=== PATIENT | female | born 1970 | race Caucasian/White ===

== ENCOUNTER → 2018-03-25 | Outpatient (CLI) | payer BC ==
[2018-03-25 14:22] LABS: BASO % 0.5 % (0.0-1.0); HEMOGLOBIN 13.6 g/dl (12.0-16.0); LYMPH # 1.8 10*3/uL (1.3-4.4); LYMPH % 22.7 % (27.0-41.0); MEAN CELL VOLUME 90.1 fl (81.0-99.0); MEAN CORPUSCULAR HGB 30.6 pg (27.0-31.0); MEAN PLATELET VOLUME 11.5 fl (9.6-12.3); MONO # 0.4 10*3/uL (0.1-1.0); MONO % 4.8 % (3.0-9.0); NEUT # 5.6 10*3/uL (2.3-7.9); NEUT % 71.6 % (47.0-73.0); PLATELET COUNT AUTOMATED 143 10*3/uL (130-400); RED BLOOD COUNT 4.44 10*6/uL (4.10-5.10); RED CELL DISTRI WIDTH 14.5 % (0-14.5); WHITE BLOOD COUNT 7.9 10*3/uL (4.8-10.8)
[2018-03-25 14:38] LABS: ALBUMIN 3.7 gm/dl (3.1-4.5); BUN 8 mg/dl (7-24); CHLORIDE 103 mmol/L (98-107); POTASSIUM 4.5 mmol/L (3.5-5.1); SGOT/AST 8 IU/L (3-35); SGPT/ALT 18 U/L (12-78); SODIUM 137 mmol/L (136-145)
[2018-03-25 14:39] LABS: ALKALINE PHOSPHATASE 119 U/L (45-117)
== END | disposition home or self-care (01) ==
LOC: LAB 13:58
PROVIDERS: Nurse Practitioner Family
DX: R84.5 Abnormal microbiological findings in specimens from respiratory organs and thorax (principal)

== ENCOUNTER → 2018-04-06 | Outpatient (CLI) | payer BC | END | disposition home or self-care (01) | LOC: WOUNDCARE 00:50 | DX: M87.045 Idiopathic aseptic necrosis of left finger(s) (principal); I99.8 Other disorder of circulatory system; S25.102A Unspecified injury of left innominate or subclavian artery, initial encounter; E11.9 Type 2 diabetes mellitus without complications; I10 Essential (primary) hypertension; F17.210 Nicotine dependence, cigarettes, uncomplicated; E78.00 Pure hypercholesterolemia, unspecified; F41.9 Anxiety disorder, unspecified; F32.9 Major depressive disorder, single episode, unspecified; X58.XXXA Exposure to other specified factors, initial encounter; Y93.89 Activity, other specified; Y92.89 Other specified places as the place of occurrence of the external cause; Y99.8 Other external cause status ==

== ENCOUNTER → 2018-04-21 | Outpatient (CLI) | payer BC | END | disposition home or self-care (01) | LOC: WOUNDCARE 04:34 | DX: S25.10 Unspecified injury of innominate or subclavian artery (principal); M87.045 Idiopathic aseptic necrosis of left finger(s); I99.8 Other disorder of circulatory system; E11.9 Type 2 diabetes mellitus without complications; I10 Essential (primary) hypertension; E78.00 Pure hypercholesterolemia, unspecified; F17.210 Nicotine dependence, cigarettes, uncomplicated; F41.9 Anxiety disorder, unspecified; X58.XXXD Exposure to other specified factors, subsequent encounter ==

== ENCOUNTER → 2018-04-23 | Outpatient (CLI) | payer BC | END | disposition home or self-care (01) | LOC: WOUNDCARE 02:13 | DX: S25.10 Unspecified injury of innominate or subclavian artery (principal); M87.045 Idiopathic aseptic necrosis of left finger(s); E11.9 Type 2 diabetes mellitus without complications; I99.8 Other disorder of circulatory system; I10 Essential (primary) hypertension; E78.00 Pure hypercholesterolemia, unspecified; F17.210 Nicotine dependence, cigarettes, uncomplicated; X58.XXXD Exposure to other specified factors, subsequent encounter ==

== ENCOUNTER → 2018-05-26 | Day surgery (SDC) | payer BC | END | disposition home or self-care (01) | LOC: CANPRESDC → SDC 04-30 11:00 | DX: H26.8 Other specified cataract (principal); Z53.8 Procedure and treatment not carried out for other reasons ==

== ENCOUNTER → 2018-08-25 | Day surgery (SDC) | payer BC ==
[~2018-08-25] VITALS: Ht 162.5 cm; Wt 102.5 kg
[~2018-08-25] MED LIST: ASPIRIN CHILDRE81 MG PO; CRESTOR20 M1 PO; GLUCOTROL10 MG PO; JARDIANCE10 MG PO; LAMICTAL25 MG PO; NEURONTIN100 MG PO; OMEPRAZOLE40 MG PO; PLAVIX75 M1 PO; SERTRALINE HYD100 MG PO
--- NOTE | ~2018-08-25 | O ---
[place], [place] OPERATIVE NOTE NAME: DAVID DIXON UNIT #: [id number] ROOM: DOCTOR: MARIANELA DURHAM MD BIRTHDATE: [birth year] DOS: 08/25/2018 PREOPERATIVE DIAGNOSIS: Cataract, left eye. POSTOPERATIVE DIAGNOSIS: Cataract, left eye. OPERATION: Extracapsular cataract extraction by phacoemulsification with posterior chamber intraocular lens implantation, left eye. ANESTHESIA: Monitored standby. OPERATIVE FINDINGS AND PROCEDURE: 2% Xylocaine topical anesthetic gel was applied to the eye in the preop area. The patient was taken to the operating room and prepped and draped in the standard fashion for sterile intraocular surgery. A time out procedure was performed verifying correct patient, correct site and corrects lens with Jose Alberto Durham M.D. The operating microscope was swung into position and the lid speculum was inserted. Using a Teresa paracentesis blade, a paracentesis was made through clear cornea. Viscoelastic was used to fill the anterior chamber. Using a metal keratome a 2.4 mm self-sealing clear corneal cataract incision was made temporally at the limbus. Using a pre-bent 25 gauge cystotome needle, a standard continuous curvilinear capsulorrhexis was performed. The anterior capsule was removed with forceps. The lens nucleus was hydrodissected and phacoemulsified in the posterior chamber. Cortical material was removed with the irrigation aspiration hand piece and the posterior capsule was then polished with a curet under irrigation. The posterior chamber and capsular bag were filled with viscoelastic. A posterior chamber intraocular lens manufactured by: [employer], Model #[id number], and 20.0 diopters, left eye in strength were then inserted into the posterior chamber and within the capsular bag using the lens cartridge and injector system. Viscoelastic was removed using the irrigation aspiration handpiece. The anterior chamber was filled with balanced salt solution through the paracentesis. Both the paracentesis site and cataract incisions were hydrated with BSS and verified to be water-tight and self-sealing. Cefuroxime 1 mg/0.1 mL was injected into the anterior chamber through the paracentesis site. The incision checked to be water-tight using a Weck-Sirena sponge. The integrity of the cataract wound and ocular tension were checked. Lid speculum and drapes were removed. The patient was transferred from the operating room to the recovery room in satisfactory condition. [place], [place] OPERATIVE NOTE NAME: DAVID DIXON UNIT #: [id number] ROOM: DOCTOR: MARIANELA DURHAM MD BIRTHDATE: [birth year] MARIANELA DURHAM MD CM:OPRECORD:OPERATIVE NOTE 0810 MARIANELA DURHAM MD 08/25/1847 interface
[2018-08-25 06:35] VITALS: BP 94/56
[2018-08-25 08:07] VITALS: BP 104/74
[2018-08-25 08:21] VITALS: BP 98/57
[2018-08-25 08:34] VITALS: BP 94/58
== END | disposition home or self-care (01) ==
LOC: SDC 08-20 08:45
DX: H25.812 Combined forms of age-related cataract, left eye (principal); E11.9 Type 2 diabetes mellitus without complications; F32.9 Major depressive disorder, single episode, unspecified; F17.210 Nicotine dependence, cigarettes, uncomplicated; K21.9 Gastro-esophageal reflux disease without esophagitis; E66.9 Obesity, unspecified; E78.5 Hyperlipidemia, unspecified; Z91.041 Radiographic dye allergy status; Z79.82 Long term (current) use of aspirin; Z79.899 Other long term (current) drug therapy; Z79.84 Long term (current) use of oral hypoglycemic drugs; Z98.890 Other specified postprocedural states; Z68.38 Body mass index [BMI] 38.0-38.9, adult

== ENCOUNTER → 2022-06-16 | Outpatient (CLI) | payer BC ==
[2022-06-16 15:31] LABS: BASO # 0.1 10*3/uL (0.0-0.1); BASO % 0.7 % (0.0-1.0); HEMATOCRIT 40.8 % (37.0-47.0); LYMPH # 2.2 10*3/uL (1.3-4.4); MEAN CELL VOLUME 90.1 fl (81.0-99.0); MEAN CORPUSCULAR HGB CONC 35.5 g/dl (33.0-37.0); MEAN PLATELET VOLUME 11.7 fl (9.6-12.3); MONO # 0.4 10*3/uL (0.1-1.0); MONO % 6.4 % (3.0-9.0); NEUT % 59.5 % (47.0-73.0); PLATELET COUNT AUTOMATED 148 10*3/uL (130-400); RED BLOOD COUNT 4.53 10*6/uL (4.10-5.10); RED CELL DISTRI WIDTH 12.6 % (0-14.5); WHITE BLOOD COUNT 6.8 10*3/uL (4.8-10.8)
[2022-06-16 15:56] LABS: CREATININE 1.16 mg/dL (0.55-1.02); POTASSIUM 4.7 mmol/L (3.4-5.1); THYROID STIM HORMONE (HS) 1.755 uIU/ml (0.550-4.780); TOTAL PROTEIN 7.4 gm/dL (6.0-8.0)
== END | disposition home or self-care (01) ==
LOC: LAB 15:05
PROVIDERS: ATTEND Nurse Practitioner Family
DX: E11.9 Type 2 diabetes mellitus without complications (principal); E78.5 Hyperlipidemia, unspecified; E55.9 Vitamin D deficiency, unspecified; I10 Essential (primary) hypertension; E66.9 Obesity, unspecified

== ENCOUNTER 2023-12-10 19:21 | Emergency (ER) | payer OTHER ==
[~2023-12-10] VITALS: Ht 157.4 cm; Wt 91.2 kg
[2023-12-10] MEDS ORDERED: MIRTAZAPINE30 M1 PO (19:36)
[2023-12-10] MEDS ORDERED: LORAZEPAM0.5 M1 PO (19:37)
[2023-12-10] MEDS ORDERED: LEVEMIR100 UNIT/1 SC (19:38)
[2023-12-10] MEDS ORDERED: Dexamethasone Sodium Phospha 20 MG/5 ML VIAL IM ONE (19:50)
[2023-12-10] MEDS ORDERED: Ketorolac Tromethamine 15 MG/ML VIAL IM ONE (19:50)
[2023-12-10 20:29] LABS: BASO # 0.1 10*3/uL (0.0-0.1); HEMATOCRIT 36.2 % (37.0-47.0); LYMPH # 2.3 10*3/uL (1.3-4.4); LYMPH % 27.9 % (27.0-41.0); MEAN CELL VOLUME 92.6 fl (81.0-99.0); MEAN CORPUSCULAR HGB 32.2 pg (27.0-31.0); MEAN CORPUSCULAR HGB CONC 34.8 g/dl (33.0-37.0); MEAN PLATELET VOLUME 11.4 fl (9.6-12.3); MONO # 0.4 10*3/uL (0.1-1.0); MONO % 4.8 % (3.0-9.0); NEUT # 5.3 10*3/uL (2.3-7.9); NEUT % 65.8 % (47.0-73.0); PLATELET COUNT AUTOMATED 192 10*3/uL (130-400); RED BLOOD COUNT 3.91 10*6/uL (4.10-5.10); RED CELL DISTRI WIDTH 12.8 % (0-14.5); WHITE BLOOD COUNT 8.1 10*3/uL (4.8-10.8)
[2023-12-10 20:36] LABS: ALKALINE PHOSPHATASE 106 U/L (46-116); BUN 13 mg/dl (9-23); CHLORIDE 101 mmol/L (98-107); POTASSIUM 5.2 mmol/L (3.4-5.1)
[2023-12-10 20:37] LABS: SGPT/ALT < 7 U/L (5-49)
[2023-12-10] MEDS ORDERED: SODIUM POLYSTYRENE SULFONATE 15 GM/60 ML BOT PO ONE (20:45)
[2023-12-10] MEDS ORDERED: INSULIN REGULAR, HUMAN 1 UNIT/0.01 ML IV ONE (20:45)
[2023-12-10] MEDS ORDERED: Albuterol Sulfate 2.5 MG/3 ML VIAL NEB ONE (20:45)
[2023-12-10] MEDS ORDERED: MAGNESIUM SULFATE 100 ML IV ONE (20:45)
== END 2023-12-10 23:59 | disposition left against medical advice (07) ==
LOC: ED 19:21
PROVIDERS: Internal Medicine
DX: R20.0 Anesthesia of skin (principal); M79.602 Pain in left arm; E11.9 Type 2 diabetes mellitus without complications; F32.A Depression, unspecified; Z53.29 Procedure and treatment not carried out because of patient's decision for other reasons

== ENCOUNTER → 2025-02-27 | Outpatient (CLI) | payer OTHER ==
[~2025-02-27] MED LIST changes: +LEVEMIR100 UNIT/1 SC; +LORAZEPAM0.5 M1 PO; +MIRTAZAPINE30 M1 PO
== END | disposition home or self-care (01) ==
LOC: US 15:00
PROVIDERS: ATTEND Family Medicine
DX: R60.0 Localized edema (principal)